=== PATIENT | male | born 1970 | race Caucasian/White ===

== ENCOUNTER 2018-09-23 11:09 | Inpatient (IN) | payer OTHER ==
[2018-09-23 15:39] VITALS: BMI 22.2
--- NOTE | 2018-09-23 16:09 | HP ---
COWS - Scale Resting Pulse: 1= [place] 81-100 Sweatin= Chills/Flushing Restless Observation: 3= Extraneous Movement Pupil Size: 1= Pupils >than Normal Bone or Joint Aches: 2= Severe Diffuse Aches Runny Nose/ Eye Tearin= Runny Nose/Eyes GI Upset > 30mins: 1= Stomach Cramp Tremor Observation: 1= Tremor Showell, Not Seen Yawning Observation: 0= None Anxiety or Irritability: 1=Feels Anxious/Irritable Goose Flesh Skin: 0=Smooth Skin COWS Score: 13 CIWA Score - Admission Criteria OASAS Guidelines: Admission for Medically Managed Detox: Requires at least one of the followin. CIWA greater than 12 2. Seizures within the past 24 hours 3. Delirium tremens within the past 24 hours 4. Hallucinations within the past 24 hours 5. Acute intervention needed for co occurring medical disorder 6. Acute intervention needed for co occurring psychiatric disorder 7. Severe withdrawal that cannot be handled at a lower level of care (continued vomiting, continued diarrhea, abnormal vital signs) requiring intravenous medication and/or fluids 8. Admission ROS S - HPI Chief Complaint: here for heroin detox 47 yo with h/ HCV pos, recently was at [facility] for a 3 day detox. SAys he restarted heroin use right after. Does not work, lives with aunt in [place], Dr. Ly- PCP. Pt not on meds. Pt states he picks at his skin when he is high on drugs [id number] bags IV/day, h/o OD 2011, was in a methadone program several years ago. d/w pt to reconsider MAT Deisy- rarely smokes denies other illicit drug use DUR- no controlled substances Allergies/Adverse Reactions: Allergies Allergy/AdvReac Type Severity Reaction Status Date / Time No Known Allergies Allergy Verified 07/03/14 14:56 - Ebola screening Have you traveled outside of the country in the last 21 days: No Have you had contact with anyone from an Ebola affected area: No Patient History - Patient Medical History Hx Anemia: No Hx Asthma: No Hx Chronic Obstructive Pulmonary Disease (COPD): No Hx Cardiac Disorders: No Hx Hypertension: No Hx Hypercholesterolemia: No HX Cerebrovascular Accident: No Hx Seizures: No Hx Diabetes: No Hx Gastrointestinal Disorders: No Hx Liver Disease: Yes (HEP C) Hx Genitourinary Disorders: No Hx Sexually Transmitted Disorders: No Hx Renal Disease (ESRD): No Hx Thyroid Disease: No Hx Human Immunodeficiency Virus (HIV): No (NEGATIVE HX) Hx Hepatitis C: Yes Hx Depression: Yes (currently not on treatment) Hx Suicide Attempt: No (DENIES) Hx Bipolar Disorder: No Hx Schizophrenia: No - Patient Surgical History Past Surgical History: Yes Hx Neurologic Surgery: No Hx Cataract Extraction: No Hx Cardiac Surgery: No Hx Lung Surgery: No Hx Breast Surgery: No Hx Breast Biopsy: No Hx Abdominal Surgery: No Hx Appendectomy: No Hx Cholecystectomy: Yes (2004) Hx Genitourinary Surgery: No Hx Section: No Hx Orthopedic Surgery: No Anesthesia Reaction: No - PPD History Date: 01/21/14 Results: 0 mm - Smoking Cessation Smoking history: Current every day smoker Have you smoked in the past 12 months: Yes Aproximately how many cigarettes per day: 20 Hx Chewing Tobacco Use: No Initiated information on smoking cessation: Yes 'Breaking Loose' booklet given: 09/23/18 - Substance & Tx. History Hx Alcohol Use: No Substance Use Type: Cocaine, Heroin Hx Substance Use Treatment: No - Substances abused Heroin Substance route: Injection Frequency: Daily Amount used: 1.5 bundles Age of first use: 28 Date of last use: 09/23/18 Family Disease History - Family Disease History Family Disease History: Other: Father (alcoholism) Admission Physical Exam BHS - Vital Signs Vital Signs: Vital Signs - 24 hr 09/23/18 09/23/18 15:27 15:52 Temperature 98.6 F 98.6 F Pulse Rate 78 78 Respiratory 18 18 Rate Blood Pressure 113/78 113/78 - Physical General Appearance: Yes: Other (multiple open and closed small areas of superficial ulcerations on arms) HEENTM: Yes: Within Normal Limits, EOMI, Hearing grossly Normal, Normal ENT Inspection, Normal Voice, LEONOR, Tm's normal Respiratory: Yes: Within Normal Limits, Chest Non-Tender, Lungs Clear Neck: Yes: Within Normal Limits, No masses,lesions,Nodules Cardiology: Yes: Within Normal Limits, Regular Rhythm, Regular Rate Abdominal: Yes: Within Normal Limits, Normal Bowel Sounds Back: Yes: Within Normal Limits, Normal Inspection Musculoskeletal: Yes: Within Normal Limits Extremities: Yes: Other (multiple scab friedman from scratching during drug use) Neurological: Yes: Within Normal Limits, reeler operator II-XII NML intact, Fully Oriented, Alert Integumentary: Yes: Track Friedman, Other (multiple areas of superficial scabs upper and lower extremities- no evidence of infection) Breathalyzer - Breathalyzer Breathalyzer: 0 Urine Drug Screen - Test Device Lot number: [id number] Expiration date: 06/06/20 - Control Is test valid?: Yes - Results Drug screen NEGATIVE: No Urine drug screen results: DEISY-Cocaine, FEN-Fentanyl, MOP-Opiates Inpatient Rehab Admission - Rehab Decision to Admit Inpatient rehab admission?: No
[2018-09-23] MEDS ORDERED: IBUPROFEN 400 MG TABLET (FP) PO PRN (16:15)
[2018-09-23] MEDS ORDERED: MAGNESIUM CITRATE 300 ML BOTTLE PO PRN (16:15)
[2018-09-23] MEDS ORDERED: NALOXONE HCL 0.4 MG/ML VIAL IVPUSH PRN (16:15)
[2018-09-23] MEDS ORDERED: MENTHOL/PHENOL 1 EACH UD MM PRN (16:15)
[2018-09-23] MEDS ORDERED: MAGNESIUM HYDROX 2400MG/30ML ORAL SUSPENSION 30 ML CUP PO PRN (16:15)
[2018-09-23] MEDS ORDERED: cloNIDine HCL 0.1 MG TABLET PO PRN (16:15)
[2018-09-23] MEDS ORDERED: METHOCARBAMOL 500 MG TABLET PO PRN (16:15)
[2018-09-23] MEDS ORDERED: ONDANSETRON *ODT* 4 MG TABLET SL PRN (16:15)
[2018-09-23] MEDS ORDERED: ACETAMINOPHEN 325 MG TABLET (FP) PO PRN ×2 (16:15)
[2018-09-23] MEDS ORDERED: MAG HYDROX/AL HYDROX/SIMETH 30 ML UNIT-DOSE CUP PO PRN (16:15)
[2018-09-23] MEDS ORDERED: BISMUTH SUBSALICYLATE 524 MG/30 ML UD PO PRN (16:15)
[2018-09-23] MEDS ORDERED: TRIMETHOBENZAMIDE HCL 200MG/2ML INJ IM PRN (16:17)
[2018-09-23] MEDS ORDERED: METHADONE HCL 10 MG TABLET (FOR DETOX USE ONLY) PO ONE ×2 (17:00→23:00)
[2018-09-23] MEDS: THIAMINE HCL 100 MG TABLET (FP) PO SCH (22:26)
[2018-09-23] MEDS: MELATONIN 5 MG TABLETS PO PRN (22:26)
[2018-09-24] MEDS ORDERED: METHADONE HCL 10 MG TABLET (FOR DETOX USE ONLY) PO ONE (10:00)
[2018-09-24] MEDS: NICOTINE 21 MG/24 HOURS TOPICAL PATCH TD SCH (10:33)
[2018-09-24] MEDS: PRENATAL VITAMINS W/ FOLIC ACID TABLET (FP) PO SCH (10:33)
[2018-09-24] MEDS: clonazePAM 0.5 MG TABLET PO PRN ×2 (10:35→16:59)
[2018-09-24] MEDS: DICYCLOMINE HCL 10 MG CAPSULE PO PRN (10:35)
[2018-09-24 10:49] LABS: ALBUMIN 3.4 g/dl (3.4-5.0); BILIRUBIN,TOTAL 0.5 mg/dL (0.2-1); BLOOD UREA NITROGEN 12.7 mg/dL (7-18); CALCIUM 9.3 mg/dL (8.5-10.1); CREATININE 0.9 mg/dL (0.55-1.3); POTASSIUM 4.3 mmol/L (3.5-5.1); TOT PROT 8.1 g/dl (6.4-8.2)
[2018-09-24 10:51] LABS: HEMATOCRIT 38.8 % (35.4-49); HEMOGLOBIN 13.1 GM/dL (11.7-16.9); MCH 30.1 pg (25.7-33.7); MCHC 33.8 g/dl (32.0-35.9); MEAN CELL VOLUME 89.3 fl (80-96); MEAN PLT VOLUME 7.8 fl (7.5-11.1); PLATELET COUNT 382 K/MM3 (134-434); RBC 4.35 M/mm3 (4.00-5.60); RDW 13.7 % (11.9-15.9); WHITE BLOOD COUNT 8.5 K/mm3 (4.0-10.0)
--- NOTE | 2018-09-24 12:12 | PN ---
BHS COWS - Scale Resting Pulse: 1= [place] 81-100 Sweatin= Chills/Flushing Restless Observation: 1= Difficult to Sit Still Pupil Size: 1= Pupils >than Normal Bone or Joint Aches: 2= Severe Diffuse Aches Runny Nose/ Eye Tearin= Runny Nose/Eyes GI Upset > 30mins: 2= Nausea/Diarrhea Tremor Observation of Outstretched Hands: 2= Slight Tremor Visible Yawning Observation: 1= 1-2x During Session Anxiety or Irritability: 2=Irritable/Anxious Goose Flesh Skin: 0=Smooth Skin COWS Score: 15 BHS Progress Note (SOAP) Subjective: alert,irritable,anxious,interrupted sleep,tremor,pain in the body and back Objective: 09/24/18 12:11 Vital Signs Temperature 98.2 F 09/24/18 09:46 Pulse Rate 92 H 09/24/18 09:46 Respiratory Rate 18 09/24/18 09:46 Blood Pressure 117/77 09/24/18 09:46 O2 Sat by Pulse Oximetry (%) Laboratory Last Values WBC 8.5 K/mm3 (4.0-10.0) 09/24/18 07:20 RBC 4.35 M/mm3 (4.00-5.60) 09/24/18 07:20 Hgb 13.1 GM/dL (11.7-16.9) 09/24/18 07:20 Hct 38.8 % (35.4-49) 09/24/18 07:20 MCV 89.3 fl (80-96) 09/24/18 07:20 MCH 30.1 pg (25.7-33.7) 09/24/18 07:20 MCHC 33.8 g/dl (32.0-35.9) 09/24/18 07:20 RDW 13.7 % (11.9-15.9) 09/24/18 07:20 Plt Count 382 K/MM3 (134-434) 09/24/18 07:20 MPV 7.8 fl (7.5-11.1) 09/24/18 07:20 Sodium 139 mmol/L (136-145) 09/24/18 07:20 Potassium 4.3 mmol/L (3.5-5.1) 09/24/18 07:20 Chloride 105 mmol/L (98-107) 09/24/18 07:20 Carbon Dioxide 27 mmol/L (21-32) 09/24/18 07:20 Anion Gap 6 MMOL/L (8-16) L 09/24/18 07:20 BUN 12.7 mg/dL (7-18) 09/24/18 07:20 Creatinine 0.9 mg/dL (0.55-1.3) 09/24/18 07:20 Est GFR (CKD-EPI)AfAm 118.30 09/24/18 07:20 Est GFR (CKD-EPI)NonAf 102.07 09/24/18 07:20 Random Glucose 82 mg/dL (74-106) 09/24/18 07:20 Calcium 9.3 mg/dL (8.5-10.1) 09/24/18 07:20 Total Bilirubin 0.5 mg/dL (0.2-1) 09/24/18 07:20 AST 32 U/L (15-37) 09/24/18 07:20 ALT 48 U/L (13-61) 09/24/18 07:20 Alkaline Phosphatase 84 U/L (45-117) 09/24/18 07:20 Total Protein 8.1 g/dl (6.4-8.2) 09/24/18 07:20 Albumin 3.4 g/dl (3.4-5.0) 09/24/18 07:20 RPR Titer Nonreactive (NONREACTIVE) 09/24/18 07:20 Assessment: 09/24/18 12:12 withdrawal symptom Plan: continue detox
[2018-09-24] MEDS: THIAMINE HCL 100 MG TABLET (FP) PO SCH (22:18)
[2018-09-24] MEDS: MELATONIN 5 MG TABLETS PO PRN (22:20)
[2018-09-24] MEDS: hydrOXYzine PAMOATE 25 MG CAPSULE (FP) PO PRN (22:21)
[2018-09-25] MEDS ORDERED: METHADONE HCL 10 MG TABLET (FOR DETOX USE ONLY) PO ONE (10:00)
[2018-09-25] MEDS: PRENATAL VITAMINS W/ FOLIC ACID TABLET (FP) PO SCH (10:26)
[2018-09-25] MEDS: NICOTINE 21 MG/24 HOURS TOPICAL PATCH TD SCH (10:26)
[2018-09-25] MEDS: clonazePAM 0.5 MG TABLET PO PRN ×3 (10:26→22:06)
[2018-09-25] MEDS: DICYCLOMINE HCL 10 MG CAPSULE PO PRN (10:27)
--- NOTE | 2018-09-25 16:27 | PN ---
BHS COWS - Scale Resting Pulse: 1= [place] 81-100 Sweatin= Chills/Flushing Restless Observation: 1= Difficult to Sit Still Pupil Size: 0= Normal to Room Light Bone or Joint Aches: 0= None Runny Nose/ Eye Tearin= None GI Upset > 30mins: 0= None Tremor Observation of Outstretched Hands: 0= None Yawning Observation: 1= 1-2x During Session Anxiety or Irritability: 2=Irritable/Anxious Goose Flesh Skin: 3=Piloerection COWS Score: 9 BHS Progress Note (SOAP) Subjective: Anxious, Interrupted Sleep, Sweating. Objective: PATIENT A & O X 3, OBSERVED AMBULATING ON UNIT UNASSISTED. IN NO ACUTE DISTRESS. 09/25/18 16:26 Vital Signs Temperature 98.9 F 09/25/18 13:16 Pulse Rate 80 09/25/18 13:16 Respiratory Rate 18 09/25/18 13:16 Blood Pressure 120/78 09/25/18 13:16 O2 Sat by Pulse Oximetry (%) Laboratory Tests 09/24/18 09/24/18 09/24/18 07:20 07:20 07:20 WBC 8.5 RBC 4.35 Hgb 13.1 Hct 38.8 MCV 89.3 MCH 30.1 MCHC 33.8 RDW 13.7 Plt Count 382 MPV 7.8 Sodium 139 Potassium 4.3 Chloride 105 Carbon Dioxide 27 Anion Gap 6 L BUN 12.7 Creatinine 0.9 Est GFR (CKD-EPI)AfAm 118.30 Est GFR (CKD-EPI)NonAf 102.07 Random Glucose 82 Calcium 9.3 Total Bilirubin 0.5 AST 32 ALT 48 Alkaline Phosphatase 84 Total Protein 8.1 Albumin 3.4 RPR Titer Nonreactive labs noted. Assessment: 09/25/18 16:26 WITHDRAWAL SYMPTOMS. Plan: CONTINUE DETOX.
[2018-09-25] MEDS: THIAMINE HCL 100 MG TABLET (FP) PO SCH (22:06)
[2018-09-26] MEDS ORDERED: METHADONE HCL 10 MG TABLET (FOR DETOX USE ONLY) PO ONE (10:00)
[2018-09-26] MEDS: PRENATAL VITAMINS W/ FOLIC ACID TABLET (FP) PO SCH (10:57)
[2018-09-26] MEDS: NICOTINE 21 MG/24 HOURS TOPICAL PATCH TD SCH (10:58)
[2018-09-26] MEDS: hydrOXYzine PAMOATE 25 MG CAPSULE (FP) PO PRN (11:00)
--- NOTE | 2018-09-26 16:27 | PN ---
BHS COWS - Scale Resting Pulse: 1= [place] 81-100 Sweatin= Chills/Flushing Restless Observation: 1= Difficult to Sit Still Pupil Size: 0= Normal to Room Light Bone or Joint Aches: 2= Severe Diffuse Aches Runny Nose/ Eye Tearin= None GI Upset > 30mins: 1= Stomach Cramp Tremor Observation of Outstretched Hands: 0= None Yawning Observation: 1= 1-2x During Session Anxiety or Irritability: 2=Irritable/Anxious Goose Flesh Skin: 0=Smooth Skin COWS Score: 9 BHS Progress Note (SOAP) Subjective: Anxious, Stomach Cramping. Objective: PATIENT A & O X 3, OBSERVED AMBULATING ON UNIT UNASSISTED. IN NO ACUTE DISTRESS. 09/26/18 16:25 Vital Signs Temperature 99.4 F 09/26/18 13:58 Pulse Rate 93 H 09/26/18 13:58 Respiratory Rate 09/26/18 13:58 Blood Pressure 125/94 09/26/18 13:58 O2 Sat by Pulse Oximetry (%) Laboratory Tests 09/24/18 09/24/18 09/24/18 07:20 07:20 07:20 WBC 8.5 RBC 4.35 Hgb 13.1 Hct 38.8 MCV 89.3 MCH 30.1 MCHC 33.8 RDW 13.7 Plt Count 382 MPV 7.8 Sodium 139 Potassium 4.3 Chloride 105 Carbon Dioxide 27 Anion Gap 6 L BUN 12.7 Creatinine 0.9 Est GFR (CKD-EPI)AfAm 118.30 Est GFR (CKD-EPI)NonAf 102.07 Random Glucose 82 Calcium 9.3 Total Bilirubin 0.5 AST 32 ALT 48 Alkaline Phosphatase 84 Total Protein 8.1 Albumin 3.4 RPR Titer Nonreactive LABS NOTED. Assessment: 09/26/18 16:26 WITHDRAWAL SYMPTOMS. Plan: CONTINUE DETOX. PRN DICYCLOMINE HCL PO FOR ABDOMINAL CRAMPING. PATIENT SCHEDULED FOR D/C TOMORROW.
[2018-09-26] MEDS: THIAMINE HCL 100 MG TABLET (FP) PO SCH (22:18)
[2018-09-26] MEDS: clonazePAM 0.5 MG TABLET PO PRN (22:20)
[2018-09-27] MEDS ORDERED: METHADONE HCL 5 MG TABLET (FOR DETOX USE ONLY) PO ONE (06:00)
[2018-09-27 09:38] VITALS: BP 146/79; PULSE 93; TEMP 98.4
[2018-09-27] MEDS: PRENATAL VITAMINS W/ FOLIC ACID TABLET (FP) PO SCH (10:42)
[2018-09-27] MEDS: NICOTINE 21 MG/24 HOURS TOPICAL PATCH TD SCH (10:42)
--- NOTE | 2018-09-27 13:44 | DS ---
[facility] Detox Discharge Summary Admission Date: 09/23/18 Discharge Date: 09/27/18 - History Present History: Opioid Dependence Additional Comments: PATIENT GOING TO [facility] ([facility]) FOR AFTERCARE. PATIENT WAS DISCHARGED FROM DETOX UNIT TO BE TAKEN OVER TO REHAB UNIT IN STABLE MEDICAL CONDITION. Pertinent Past History: Hep C, Depression, Nicotine Dependence. - Physical Exam Results Vital Signs: Vital Signs Temperature 98.4 F 09/27/18 09:37 Pulse Rate 93 H 09/27/18 09:37 Respiratory Rate 09/27/18 09:37 Blood Pressure 146/79 09/27/18 09:37 O2 Sat by Pulse Oximetry (%) Pertinent Admission Physical Exam Findings: WITHDRAWAL SYMPTOMS. Laboratory Tests 09/24/18 09/24/18 09/24/18 07:20 07:20 07:20 WBC 8.5 RBC 4.35 Hgb 13.1 Hct 38.8 MCV 89.3 MCH 30.1 MCHC 33.8 RDW 13.7 Plt Count 382 MPV 7.8 Sodium 139 Potassium 4.3 Chloride 105 Carbon Dioxide 27 Anion Gap 6 L BUN 12.7 Creatinine 0.9 Est GFR (CKD-EPI)AfAm 118.30 Est GFR (CKD-EPI)NonAf 102.07 Random Glucose 82 Calcium 9.3 Total Bilirubin 0.5 AST 32 ALT 48 Alkaline Phosphatase 84 Total Protein 8.1 Albumin 3.4 RPR Titer Nonreactive LABS NOTED. - Treatment Hospital Course: Detox Protocol Followed, Detoxed Safely, Responded well, Discharged Condition Good, Rehab Referral Accepted Patient has Accepted a Rehab Referral to: [facility] ([place], [place]). - Medication Discharge Medications: Ambulatory Orders NK [No Known Home Medication] 01/19/14 - Diagnosis (1) Hepatitis C Status: Chronic Qualifiers: Viral hepatitis chronicity: chronic Hepatic coma status: without hepatic coma Qualified Code(s): B18.2 - Chronic viral hepatitis C (2) Nicotine dependence Status: Acute Qualifiers: Nicotine product type: cigarettes Substance use status: uncomplicated Qualified Code(s): F17.210 - Nicotine dependence, cigarettes, uncomplicated (3) Opioid dependence Status: Acute Qualifiers: Substance use status: in withdrawal Qualified Code(s): F11.23 - Opioid dependence with withdrawal - AMA Did Patient Leave Against Medical Advice: No
== END 2018-09-27 12:49 | disposition other institution (70) | DRG 773 ==
LOC: YASAS 11:09 → Y3N 16:41
PROVIDERS: ADMIT Surgery; ATTEND Surgery
PROC: HZ2ZZZZ Detoxification Services for Substance Abuse Treatment (ICD-10-PCS; principal; 2018-09-23)
DX: F11.23 Opioid dependence with withdrawal (principal); F14.20 Cocaine dependence, uncomplicated; F17.210 Nicotine dependence, cigarettes, uncomplicated; F32.9 Major depressive disorder, single episode, unspecified; B18.2 Chronic viral hepatitis C
CPT/HCPCS: 36415; 80053; 85027; 86593

== ENCOUNTER 2018-09-27 12:54 | Inpatient (IN) | payer OTHER ==
[2018-09-27] MEDS ORDERED: MAGNESIUM CITRATE 300 ML BOTTLE PO PRN (13:50)
[2018-09-27] MEDS ORDERED: ACETAMINOPHEN 325 MG TABLET (FP) PO PRN (13:50)
[2018-09-27] MEDS ORDERED: LOPERAMIDE HCL 2 MG CAPSULE PO PRN (13:50)
[2018-09-27] MEDS ORDERED: IBUPROFEN 400 MG TABLET (FP) PO PRN (13:50)
[2018-09-27] MEDS ORDERED: guaiFENesin 200 MG/10 ML 10 ML UNIT-DOSE CUPS PO PRN (13:50)
[2018-09-27] MEDS ORDERED: MAGNESIUM HYDROX 2400MG/30ML ORAL SUSPENSION 30 ML CUP PO PRN (13:50)
[2018-09-27] MEDS ORDERED: MENTHOL/PHENOL 1 EACH UD MM PRN (13:50)
[2018-09-27] MEDS ORDERED: P-EPHED 60MG/TRIPROLIDI 2.5MG TABLET PO PRN (13:50)
[2018-09-27] MEDS ORDERED: MAG HYDROX/AL HYDROX/SIMETH 30 ML UNIT-DOSE CUP PO PRN (13:50)
--- NOTE | 2018-09-27 13:52 | HP ---
THANH GUEVARA Rehab Assess/Revision - Admission History Admitted to Rehab from: [facility] Date of Admission to Rehab: 09/27/2018 - Vital signs Vital Signs: Vital Signs Period Temp Pulse Resp BP Sys/Salcedo Pulse Ox Last 24 Hr 98.6 F 91 18 111/67 - Findings Detox History & Physical reviewed: Yes Concur with findings: Yes Comments/Additional Findings: PATIENT'S MEDICAL / MEDICATION HISTORY REVIEWED PRIOR TO DISCHARGE FROM DETOX UNIT. PATIENT WAS DISCHARGED FROM DETOX UNIT TO BE TAKEN OVER TO REHAB UNIT IN STABLE MEDICAL CONDITION. Inpatient Rehab Admission - Rehab Decision to Admit Inpatient rehab admission?: Yes - Initial Determination Are CD services needed?: Yes Free of communicable disease: Yes Not in need of hospitalization: Yes - Rehab Admission Criteria Previous failed treatment: Yes Poor recovery environment: No Comorbidities: Yes Lacks judgement: No Patient is meeting Inpatient Rehab admission criteria:: Yes
[2018-09-27] MEDS: THIAMINE HCL 100 MG TABLET (FP) PO SCH (21:55)
[2018-09-27] MEDS: MELATONIN 5 MG TABLETS PO PRN (21:56)
[2018-09-28] MEDS: NICOTINE 21 MG/24 HOURS TOPICAL PATCH TD SCH (10:26)
[2018-09-28] MEDS: PRENATAL VITAMINS W/ FOLIC ACID TABLET (FP) PO SCH (10:26)
[2018-09-28] MEDS: THIAMINE HCL 100 MG TABLET (FP) PO SCH (21:40)
[2018-09-29] MEDS: NICOTINE 21 MG/24 HOURS TOPICAL PATCH TD SCH (10:31)
[2018-09-29] MEDS: PRENATAL VITAMINS W/ FOLIC ACID TABLET (FP) PO SCH (10:31)
[2018-09-29] MEDS: MELATONIN 5 MG TABLETS PO PRN (21:39)
[2018-09-29] MEDS: THIAMINE HCL 100 MG TABLET (FP) PO SCH (21:39)
[2018-09-30] MEDS: PRENATAL VITAMINS W/ FOLIC ACID TABLET (FP) PO SCH (10:43)
[2018-09-30] MEDS: NICOTINE 21 MG/24 HOURS TOPICAL PATCH TD SCH (10:44)
[2018-09-30] MEDS: THIAMINE HCL 100 MG TABLET (FP) PO SCH (21:35)
[2018-09-30] MEDS: MELATONIN 5 MG TABLETS PO PRN (21:35)
[2018-10-01] MEDS: NICOTINE 21 MG/24 HOURS TOPICAL PATCH TD SCH (10:26)
[2018-10-01] MEDS: PRENATAL VITAMINS W/ FOLIC ACID TABLET (FP) PO SCH (10:26)
[2018-10-01] MEDS: MELATONIN 5 MG TABLETS PO PRN (21:36)
[2018-10-01] MEDS: THIAMINE HCL 100 MG TABLET (FP) PO SCH (21:36)
[2018-10-02] MEDS: PRENATAL VITAMINS W/ FOLIC ACID TABLET (FP) PO SCH (10:00)
[2018-10-02] MEDS: NICOTINE 21 MG/24 HOURS TOPICAL PATCH TD SCH (10:00)
--- NOTE | 2018-10-02 12:43 | CONSULT ---
[facility] Psychiatric Consult - Data Date of interview: 10/02/18 Admission source: 3N Identifying data: Mr Hill is a 47 years old male, father of a 24 years old daughter, unemployed with no source of income, domiciled renting a room from a relative seeking rehab treatment for opioid and cocaine Substance Abuse History: Reports history of heroin and cocaine use. Referto addiction counselor's summary for further information Medical History: Significant for hepatitis C, GERD and history of cholecystectomy in 2004. Smokes cigarettes 1 ppd Psychiatric History: Reports that his sole psychiatric treatment occured in 1994 when, after losing both his father and his sister, he was diagnosed with MDD and started on Prozac. Claims that he stopped taking the medication after a year. Denies previous psychiatric hospitalization or suicidal attempt. At present, denies experiencing depressive symptoms, S/H ideations. However, reports sleeping poorly Physical/Sexual Abuse/Trauma History: Denies history of emotional, physical or sexual abuse a well as DV relationship. No service Additional Comment: Reports history of 6 previous arrset including 2 felony conviction on charges of sale Mental Status Exam - Mental Status Exam Alert and Oriented to: Time, Place, Person Cognitive Function: Fair Patient Appearance: Well Groomed Mood: Hopeful, Euthymic Patient Behavior: Cooperative Speech Pattern: Clear Voice Loudness: Normal Thought Process: Intact Thought Disorder: Not Present Hallucinations: Denies Suicidal Ideation: Denies Homicidal Ideation: Denies Insight/Judgement: Poor Sleep: Poorly Appetite: Fair Muscle strength/Tone: Normal Gait/Station: Normal Psychiatric Findings - Problem List (Ruth 1, 2,3) (1) Depressive disorder Current Visit: Yes Status: Chronic (2) MDD (major depressive disorder) Current Visit: Yes Status: Acute (3) Substance-induced sleep disorder Current Visit: Yes Status: Acute (4) Opioid dependence Current Visit: No Status: Acute Qualifiers: Substance use status: in withdrawal Qualified Code(s): F11.23 - Opioid dependence with withdrawal (5) Cocaine dependence Current Visit: No Status: Acute (6) GERD (gastroesophageal reflux disease) Current Visit: No Status: Chronic (7) Hepatitis C Current Visit: No Status: Chronic Qualifiers: Viral hepatitis chronicity: chronic Hepatic coma status: without hepatic coma Qualified Code(s): B18.2 - Chronic viral hepatitis C - Initial Treatment Plan Initial Treatment Plan: 1) Start Belsomra 10 mg po HS prn for insomnia. 2) Continue inpatient rehabilitation
[2018-10-02] MEDS: THIAMINE HCL 100 MG TABLET (FP) PO SCH (21:36)
[2018-10-02] MEDS: SUVOREXANT 10 MG TABLET PO PRN (21:37)
[2018-10-03] MEDS: NICOTINE 21 MG/24 HOURS TOPICAL PATCH TD SCH (10:08)
[2018-10-03] MEDS: PRENATAL VITAMINS W/ FOLIC ACID TABLET (FP) PO SCH (10:08)
--- NOTE | 2018-10-03 12:25 | PN ---
BHS COWS - Scale Resting Pulse: 1= [place] 81-100 Sweatin= No chills or Flushing Restless Observation: 0= Sits Still Pupil Size: 0= Normal to Room Light Bone or Joint Aches: 4=Acute Joint/Muscle Pain Runny Nose/ Eye Tearin= None GI Upset > 30mins: 0= None Tremor Observation of Outstretched Hands: 0= None Yawning Observation: 0= None Anxiety or Irritability: 1=Feels Anxious/Irritable Goose Flesh Skin: 0=Smooth Skin COWS Score: 6 BHS Progress Note (SOAP) Subjective: PT REPORTS HE WAS ON SUBOXONE WITH DR SOULEYMANE COLUNGA UP TILL AUGUST 2018. AND THEN RELAPSED. PT WANTS TO RESTART AND GO BACK TO HIS DOCTOR AT [facility],[address] [place], [place] [address]PHONE:[phone]). PT REPORTS HE WAS ON SUBOXONE 12MG SL BID BEFOR RELAPSE. PT'S COUNSELLOR, MS GLORIA BROWN CALLED DR'S OFFICE AND SCHEDULED AFTERCARE FOR PATIENT TO GO BACK AFTER REHAB. Objective: 10/03/18 12:25 Vital Signs 10/03/18 06:33 Temperature 98.0 F Pulse Rate 85 Respiratory 16 Rate Blood Pressure 124/81 Assessment: 10/03/18 12:25 PROTRACTED W/S CRAVINGS Plan: D/W PT TODAY UDS THEN START SUBOXONE 4 MG/1 MG SL DAILY THEN PROGRESS 8 MG/2 MG SL BID
[2018-10-03] MEDS ORDERED: BUPRENORPHINE/NALOXONE 2 MG/0.5 MG FILM PACKET SL ONE (16:30)
[2018-10-03] MEDS: THIAMINE HCL 100 MG TABLET (FP) PO SCH (21:48)
[2018-10-03] MEDS: SUVOREXANT 10 MG TABLET PO PRN (21:49)
[2018-10-04] MEDS ORDERED: BUPRENORPHINE/NALOXONE 2 MG/0.5 MG FILM PACKET SL SCH (10:00)
[2018-10-04] MEDS: NICOTINE 21 MG/24 HOURS TOPICAL PATCH TD SCH (10:06)
[2018-10-04] MEDS: PRENATAL VITAMINS W/ FOLIC ACID TABLET (FP) PO SCH (10:06)
--- NOTE | 2018-10-04 11:23 | PN ---
BHS Progress Note Note: PT REQUESTING FOR CHANGE IN DOSING TIME FOR SUBOXONE. SUBOXONE 4MG/1 MG SL BID @0600 & 1800 DAILY Vital Signs 10/04/18 10/04/18 03:30 06:46 Temperature 97.9 F Pulse Rate 82 Respiratory 18 17 Rate Blood Pressure 123/75 REPORTS NO ACUTE DISTRESS.
[2018-10-04] MEDS: BUPRENORPHINE/NALOXONE 2 MG/0.5 MG FILM PACKET SL SCH (17:50)
[2018-10-04] MEDS: THIAMINE HCL 100 MG TABLET (FP) PO SCH (21:42)
[2018-10-04] MEDS: SUVOREXANT 10 MG TABLET PO PRN (21:43)
[2018-10-05] MEDS: BUPRENORPHINE/NALOXONE 2 MG/0.5 MG FILM PACKET SL SCH ×2 (06:05→18:07)
[2018-10-05] MEDS: PRENATAL VITAMINS W/ FOLIC ACID TABLET (FP) PO SCH (10:19)
[2018-10-05] MEDS: NICOTINE 21 MG/24 HOURS TOPICAL PATCH TD SCH (10:19)
--- NOTE | 2018-10-05 12:20 | PN ---
Fátima Progress Note Note: Psychiatry Attending's note : Called for renewal of suvorexant. Chart reviewed. Dr Smith's note of 10/02/18 : appreciated. Medication is confirmed. Informed consent : already done. No report of adverse effects. Good response to the medication. Belsomra 10 mg po hs prn. Renewed. .
[2018-10-05] MEDS ORDERED: SUVOREXANT 10 MG TABLET PO PRN ×2 (12:26→22:00)
[2018-10-05] MEDS: THIAMINE HCL 100 MG TABLET (FP) PO SCH (21:45)
[2018-10-05] MEDS: SUVOREXANT 10 MG TABLET PO PRN (21:46)
[2018-10-05] MEDS: NICOTINE POLACRILEX 2 MG GUM BUC PRN (21:46)
[2018-10-06] MEDS: BUPRENORPHINE/NALOXONE 2 MG/0.5 MG FILM PACKET SL SCH ×2 (06:21→17:38)
[2018-10-06] MEDS: PRENATAL VITAMINS W/ FOLIC ACID TABLET (FP) PO SCH (10:36)
[2018-10-06] MEDS: NICOTINE 21 MG/24 HOURS TOPICAL PATCH TD SCH (10:37)
[2018-10-06] MEDS: NICOTINE POLACRILEX 2 MG GUM BUC PRN (10:41)
[2018-10-06] MEDS: THIAMINE HCL 100 MG TABLET (FP) PO SCH (21:35)
[2018-10-07] MEDS: BUPRENORPHINE/NALOXONE 2 MG/0.5 MG FILM PACKET SL SCH (06:27)
[2018-10-07 06:59] VITALS: BP 138/81; PULSE 93; TEMP 97.8
[2018-10-07] MEDS: NICOTINE POLACRILEX 2 MG GUM BUC PRN (10:46)
[2018-10-07] MEDS: NICOTINE 21 MG/24 HOURS TOPICAL PATCH TD SCH (10:46)
[2018-10-07] MEDS: PRENATAL VITAMINS W/ FOLIC ACID TABLET (FP) PO SCH (10:46)
--- NOTE | 2018-10-07 12:30 | PN ---
BHS Progress Note (SOAP) Subjective: PT COMPLETED REHAB AND DISCHARGED TODAY. PT HAS BEEN REFERRED BACK TO HIS PCP/ SUBOXONE PROVIDER FOR TO CONTINUE CARE AND THE [facility] CD PROGRAM FOR AFTERCARE. ALERT O X 3. DENIES S/H/I. COURTESY RX FOR SUBOXONE 4MG/1MG SL BID #14 ELECTRONICALLY SENT TO PT'S PHARMACY. Objective: 10/07/18 12:30 Vital Signs 10/07/18 06:58 Temperature 97.8 F Pulse Rate 93 H Respiratory 18 Rate Blood Pressure 138/81 Home Medications Medication Instructions Recorded Buprenorphine HCl/Naloxone HCl 1 each SL BID #14 film MDD 2 10/07/18 [Suboxone 4 mg-1 mg Sl Film] Assessment: 10/07/18 13:20 NAD MEDICALLY STABLE Plan: FOLLOW UP WITH PCP WITHIN 1 WEEK FOLLOW UP WITH CD AFTERCARE RECOMMENDED.
== END 2018-10-07 11:10 | disposition home or self-care (01) | DRG 772 ==
LOC: YASAS 12:54 → Y5N 12:55
PROVIDERS: ADMIT Neuromusculoskeletal Medicine & OMM; ATTEND Neuromusculoskeletal Medicine & OMM
PROC: HZ42ZZZ Group Counseling for Substance Abuse Treatment, Cognitive-Behavioral (ICD-10-PCS; principal; 2018-09-27)
DX: F11.20 Opioid dependence, uncomplicated (principal); F14.20 Cocaine dependence, uncomplicated; F17.210 Nicotine dependence, cigarettes, uncomplicated; F32.9 Major depressive disorder, single episode, unspecified; F19.282 Other psychoactive substance dependence with psychoactive substance-induced sleep disorder; K21.9 Gastro-esophageal reflux disease without esophagitis; B18.2 Chronic viral hepatitis C

== ENCOUNTER 2020-04-08 10:10 | Inpatient (IN) | payer OTHER ==
[2020-04-08 10:55] VITALS: BMI 23.6
[2020-04-08] MEDS ORDERED: MAGNESIUM HYDROX 2400MG/30ML ORAL SUSPENSION 30 ML CUP PO PRN (11:25)
[2020-04-08] MEDS ORDERED: METHADONE HCL 10 MG TABLET (FOR DETOX USE ONLY) PO ONE (11:25)
[2020-04-08] MEDS ORDERED: MAG HYDROX/AL HYDROX/SIMETH 30 ML UNIT-DOSE CUP PO PRN (11:25)
[2020-04-08] MEDS ORDERED: MENTHOL/PHENOL 1 EACH UD MM PRN (11:25)
[2020-04-08] MEDS ORDERED: NICOTINE POLACRILEX 2 MG GUM BUC PRN (11:25)
[2020-04-08] MEDS ORDERED: cloNIDine HCL 0.1 MG TABLET PO PRN (11:25)
[2020-04-08] MEDS ORDERED: ACETAMINOPHEN 325 MG TABLET (FP) PO PRN ×2 (11:25)
[2020-04-08] MEDS ORDERED: BISMUTH SUBSALICYLATE 262 MG/15 ML BTL PO PRN (11:25)
[2020-04-08] MEDS ORDERED: MAGNESIUM CITRATE 300 ML BOTTLE PO PRN (11:25)
[2020-04-08] MEDS: ONDANSETRON *ODT* 4 MG TABLET SL PRN (12:44)
[2020-04-08] MEDS: PRENATAL VITAMINS W/ FOLIC ACID TABLET (FP) PO SCH (12:44)
[2020-04-08] MEDS: hydrOXYzine PAMOATE 25 MG CAPSULE (FP) PO SCH ×3 (14:06→22:21)
[2020-04-08 17:07] LABS: HEMATOCRIT 37.5 % (35.4-49); HEMOGLOBIN 12.6 GM/dL (11.7-16.9); MCH 31.7 pg (25.7-33.7); MCHC 33.6 g/dl (32.0-35.9); MEAN CELL VOLUME 94.4 fl (80-96); MEAN PLT VOLUME 8.3 fl (7.5-11.1); PLATELET COUNT 349 K/MM3 (134-434); RBC 3.97 M/mm3 (4.00-5.60); RDW 13.7 % (11.9-15.9); WHITE BLOOD COUNT 6.2 K/mm3 (4.0-10.0)
[2020-04-08 17:10] LABS: POTASSIUM 4.4 mmol/L (3.5-5.1)
[2020-04-08 17:12] LABS: CALCIUM 9.6 mg/dL (8.5-10.1)
[2020-04-08 17:13] LABS: ALBUMIN 3.7 g/dl (3.4-5.0); BLOOD UREA NITROGEN 21.1 mg/dL (7-18)
[2020-04-08 17:16] LABS: CREATININE 0.9 mg/dL (0.55-1.3)
[2020-04-08 17:18] LABS: BILIRUBIN,TOTAL 0.6 mg/dL (0.2-1); TOT PROT 8.4 g/dl (6.4-8.2)
[2020-04-08] MEDS ORDERED: MELATONIN 5 MG TABLETS PO SCH (22:00)
[2020-04-08] MEDS ORDERED: SUVOREXANT 10 MG TABLET PO PRN (22:00)
[2020-04-08] MEDS: THIAMINE HCL 100 MG TABLET (FP) PO SCH (22:21)
[2020-04-09] MEDS: hydrOXYzine PAMOATE 25 MG CAPSULE (FP) PO SCH ×5 (07:22→23:32)
[2020-04-09] MEDS ORDERED: METHADONE HCL 10 MG TABLET (FOR DETOX USE ONLY) ONE (08:50)
[2020-04-09] MEDS ORDERED: METHADONE HCL 5 MG TABLET (FOR DETOX USE ONLY) ONE (08:50)
[2020-04-09] MEDS: PRENATAL VITAMINS W/ FOLIC ACID TABLET (FP) PO SCH (09:17)
[2020-04-09] MEDS ORDERED: METHADONE (DETOX) 20 MG, METHADONE (DETOX) 5 MG PO ONE (10:00)
[2020-04-09] MEDS: THIAMINE HCL 100 MG TABLET (FP) PO SCH (23:33)
[2020-04-10] MEDS: hydrOXYzine PAMOATE 25 MG CAPSULE (FP) PO SCH ×5 (06:36→22:16)
[2020-04-10] MEDS: PRENATAL VITAMINS W/ FOLIC ACID TABLET (FP) PO SCH (09:22)
[2020-04-10] MEDS ORDERED: METHADONE HCL 10 MG TABLET (FOR DETOX USE ONLY) PO ONE (10:00)
[2020-04-10] MEDS: ONDANSETRON *ODT* 4 MG TABLET SL PRN (17:16)
[2020-04-10] MEDS: THIAMINE HCL 100 MG TABLET (FP) PO SCH (22:16)
[2020-04-10] MEDS: IBUPROFEN 400 MG TABLET (FP) PO PRN (22:18)
[2020-04-10] MEDS: METHOCARBAMOL 500 MG TABLET PO PRN (22:18)
[2020-04-11] MEDS: hydrOXYzine PAMOATE 25 MG CAPSULE (FP) PO SCH ×5 (06:33→22:26)
[2020-04-11] MEDS ORDERED: METHADONE HCL 5 MG TABLET (FOR DETOX USE ONLY) ONE (09:42)
[2020-04-11] MEDS ORDERED: METHADONE HCL 10 MG TABLET (FOR DETOX USE ONLY) ONE (09:42)
[2020-04-11] MEDS: METHOCARBAMOL 500 MG TABLET PO PRN ×2 (09:58→17:10)
[2020-04-11] MEDS: PRENATAL VITAMINS W/ FOLIC ACID TABLET (FP) PO SCH (09:58)
[2020-04-11] MEDS ORDERED: METHADONE (DETOX) 10 MG, METHADONE (DETOX) 5 MG PO ONE (10:00)
[2020-04-11] MEDS: NICOTINE 21 MG/24 HOURS TOPICAL PATCH TD SCH (17:56)
[2020-04-11] MEDS: THIAMINE HCL 100 MG TABLET (FP) PO SCH (22:26)
[2020-04-12] MEDS: hydrOXYzine PAMOATE 25 MG CAPSULE (FP) PO SCH ×2 (07:02→09:40)
[2020-04-12] MEDS: PRENATAL VITAMINS W/ FOLIC ACID TABLET (FP) PO SCH (09:40)
[2020-04-12] MEDS: NICOTINE 21 MG/24 HOURS TOPICAL PATCH TD SCH (09:40)
[2020-04-12] MEDS: METHOCARBAMOL 500 MG TABLET PO PRN (09:43)
[2020-04-12] MEDS: IBUPROFEN 400 MG TABLET (FP) PO PRN (09:43)
[2020-04-12] MEDS ORDERED: METHADONE HCL 10 MG TABLET (FOR DETOX USE ONLY) PO ONE (10:00)
[2020-04-12] MEDS ORDERED: hydrOXYzine PAMOATE 25 MG CAPSULE (FP) PO PRN (11:25)
[2020-04-12] MEDS: THIAMINE HCL 100 MG TABLET (FP) PO SCH (22:02)
[2020-04-13] MEDS ORDERED: METHADONE HCL 5 MG TABLET (FOR DETOX USE ONLY) PO ONE (06:00)
[2020-04-13 10:05] VITALS: BP 113/73; PULSE 87; TEMP 98.4
== END 2020-04-13 09:17 | disposition home or self-care (01) | DRG 773 ==
LOC: YASAS 10:10 → Y3N 11:13
PROVIDERS: ADMIT Allergy & Immunology; ATTEND Allergy & Immunology
PROC: HZ2ZZZZ Detoxification Services for Substance Abuse Treatment (ICD-10-PCS; principal; 2020-04-08)
DX: F11.23 Opioid dependence with withdrawal (principal); F10.230 Alcohol dependence with withdrawal, uncomplicated; F14.20 Cocaine dependence, uncomplicated; F19.282 Other psychoactive substance dependence with psychoactive substance-induced sleep disorder; F17.210 Nicotine dependence, cigarettes, uncomplicated; F32.9 Major depressive disorder, single episode, unspecified; K21.9 Gastro-esophageal reflux disease without esophagitis; B18.2 Chronic viral hepatitis C; R79.89 Other specified abnormal findings of blood chemistry; Z90.49 Acquired absence of other specified parts of digestive tract
CPT/HCPCS: 36415; 80053; 85027; 86780; 93005; 93010; C9803; Q0162; U0003

== ENCOUNTER 2021-06-03 14:07 | Inpatient (IN) | payer BC, OTHER ==
[2021-06-03] MEDS ORDERED: NICOTINE 10 MG CARTRIDGE (INHALER) IH PRN (16:14)
[2021-06-03] MEDS ORDERED: IBUPROFEN 400 MG TABLET (FP) PO PRN (16:14)
[2021-06-03] MEDS ORDERED: MENTHOL/PHENOL 1 EACH UD MM PRN (16:14)
[2021-06-03] MEDS ORDERED: diazePAM 5 MG TABLET PO PRN ×2 (16:14→18:16)
[2021-06-03] MEDS ORDERED: METHOCARBAMOL 500 MG TABLET PO PRN (16:14)
[2021-06-03] MEDS ORDERED: MAGNESIUM HYDROX 2400MG/30ML ORAL SUSPENSION 30 ML CUP PO PRN (16:14)
[2021-06-03] MEDS ORDERED: MAG HYDROX/AL HYDROX/SIMETH 30 ML UNIT-DOSE CUP PO PRN (16:14)
[2021-06-03] MEDS ORDERED: cloNIDine HCL 0.1 MG TABLET PO ONE (16:14)
[2021-06-03] MEDS ORDERED: LOPERAMIDE HCL 2 MG CAPSULE PO PRN (16:14)
[2021-06-03] MEDS ORDERED: ACETAMINOPHEN 325 MG TABLET (FP) PO PRN ×2 (16:14)
[2021-06-03] MEDS ORDERED: BUPRENORPHINE HCL 150 MCG, BUPRENORPHINE HCL 75 MCG BC ONE (16:14)
[2021-06-03] MEDS ORDERED: MAGNESIUM CITRATE 300 ML BOTTLE PO PRN (16:14)
[2021-06-03 16:59] VITALS: BMI 21.2
[2021-06-03] MEDS ORDERED: BUPRENORPHINE HCL 75 MCG FILM BC ONE (17:31)
[2021-06-03] MEDS ORDERED: BUPRENORPHINE HCL 150 MCG FILM BC ONE (17:32)
[2021-06-03] MEDS ORDERED: diazePAM 5 MG TABLET PO ONE (18:33)
[2021-06-03] MEDS: NICOTINE 21 MG/24 HOURS TOPICAL PATCH TD SCH (18:58)
[2021-06-03] MEDS: hydrOXYzine PAMOATE 25 MG CAPSULE (FP) PO SCH ×2 (18:59→22:17)
[2021-06-03] MEDS: diazePAM 5 MG TABLET PO SCH (22:16)
[2021-06-03] MEDS: BACITRACIN 0.9 GM PACKET TP SCH (22:16)
[2021-06-03] MEDS: THIAMINE HCL 100 MG TABLET (FP) PO SCH (22:17)
[2021-06-03] MEDS: MELATONIN 5 MG TABLETS PO SCH (22:17)
[2021-06-04] MEDS ORDERED: BUPRENORPHINE HCL 75 MCG FILM BC ONE ×2 (04:34→19:17)
[2021-06-04] MEDS ORDERED: BUPRENORPHINE HCL 150 MCG FILM BC ONE ×2 (04:34→19:16)
[2021-06-04] MEDS: hydrOXYzine PAMOATE 25 MG CAPSULE (FP) PO SCH ×5 (05:19→23:14)
[2021-06-04] MEDS: diazePAM 5 MG TABLET PO SCH ×4 (05:19→23:15)
[2021-06-04] MEDS: BUPRENORPHINE HCL 150 MCG, BUPRENORPHINE HCL 75 MCG BC SCH ×2 (05:20→19:19)
[2021-06-04] MEDS: PRENATAL VITAMINS W/ FOLIC ACID TABLET (FP) PO SCH (10:26)
[2021-06-04] MEDS: NICOTINE 21 MG/24 HOURS TOPICAL PATCH TD SCH (10:26)
[2021-06-04] MEDS: BACITRACIN 0.9 GM PACKET TP SCH ×2 (10:27→23:14)
[2021-06-04] MEDS: cloNIDine HCL 0.1 MG TABLET PO PRN (17:31)
[2021-06-04] MEDS: ONDANSETRON *ODT* 4 MG TABLET SL PRN (17:31)
[2021-06-04] MEDS: MELATONIN 5 MG TABLETS PO SCH (23:14)
[2021-06-04] MEDS: THIAMINE HCL 100 MG TABLET (FP) PO SCH (23:15)
[2021-06-05] MEDS: hydrOXYzine PAMOATE 25 MG CAPSULE (FP) PO SCH ×5 (06:02→22:43)
[2021-06-05] MEDS: diazePAM 5 MG TABLET PO SCH ×3 (06:02→22:43)
[2021-06-05] MEDS: BUPRENORPHINE HCL 450 MCG FILM BC SCH ×2 (06:02→17:24)
[2021-06-05] MEDS: ONDANSETRON *ODT* 4 MG TABLET SL PRN ×2 (06:03→15:05)
[2021-06-05] MEDS: NICOTINE 21 MG/24 HOURS TOPICAL PATCH TD SCH (10:46)
[2021-06-05] MEDS: BACITRACIN 0.9 GM PACKET TP SCH ×2 (10:46→22:44)
[2021-06-05] MEDS: PRENATAL VITAMINS W/ FOLIC ACID TABLET (FP) PO SCH (10:46)
[2021-06-05 13:07] LABS: SARS-CoV-2 NAA Not Detected (Not Detected)
[2021-06-05] MEDS: cloNIDine HCL 0.1 MG TABLET PO PRN ×2 (17:24→22:42)
[2021-06-05] MEDS: BISMUTH SUBSALICYLATE 524 MG/30 ML PO PRN (17:28)
[2021-06-05] MEDS: MELATONIN 5 MG TABLETS PO SCH (22:42)
[2021-06-05] MEDS: THIAMINE HCL 100 MG TABLET (FP) PO SCH (22:43)
[2021-06-06] MEDS: hydrOXYzine PAMOATE 25 MG CAPSULE (FP) PO SCH ×5 (05:52→22:17)
[2021-06-06] MEDS: BUPRENORPHINE/NALOXONE 4 MG/1 MG FILM PACKET SL SCH ×2 (05:52→17:56)
[2021-06-06] MEDS: diazePAM 5 MG TABLET PO SCH ×2 (05:52→17:58)
[2021-06-06] MEDS: PRENATAL VITAMINS W/ FOLIC ACID TABLET (FP) PO SCH (10:57)
[2021-06-06] MEDS: BACITRACIN 0.9 GM PACKET TP SCH ×2 (10:57→22:17)
[2021-06-06] MEDS: NICOTINE 21 MG/24 HOURS TOPICAL PATCH TD SCH ×2 (10:57→11:00)
[2021-06-06] MEDS: cloNIDine HCL 0.1 MG TABLET PO PRN (10:59)
[2021-06-06] MEDS: ONDANSETRON *ODT* 4 MG TABLET SL PRN (17:57)
[2021-06-06] MEDS: MELATONIN 5 MG TABLETS PO SCH (22:17)
[2021-06-06] MEDS: THIAMINE HCL 100 MG TABLET (FP) PO SCH (22:17)
[2021-06-06] MEDS: BISMUTH SUBSALICYLATE 524 MG/30 ML PO PRN (22:19)
[2021-06-07] MEDS ORDERED: BUPRENORPHINE/NALOXONE 8 MG/2 MG FILM PACKET SL ONE (06:00)
[2021-06-07] MEDS ORDERED: diazePAM 5 MG TABLET PO ONE (06:00)
[2021-06-07] MEDS: hydrOXYzine PAMOATE 25 MG CAPSULE (FP) PO SCH (06:13)
[2021-06-07 09:15] VITALS: BP 111/75; PULSE 84; TEMP 97.1
== END 2021-06-07 10:12 | disposition home or self-care (01) | DRG 897 ==
LOC: YASAS 14:07 → Y3N 17:02
PROVIDERS: ADMIT Allergy & Immunology; ATTEND Allergy & Immunology
PROC: HZ2ZZZZ Detoxification Services for Substance Abuse Treatment (ICD-10-PCS; principal; 2021-06-03)
DX: F11.23 Opioid dependence with withdrawal (principal); F14.20 Cocaine dependence, uncomplicated; F10.230 Alcohol dependence with withdrawal, uncomplicated; F17.210 Nicotine dependence, cigarettes, uncomplicated; K21.9 Gastro-esophageal reflux disease without esophagitis; B18.2 Chronic viral hepatitis C; H55.00 Unspecified nystagmus; L98.8 Other specified disorders of the skin and subcutaneous tissue
CPT/HCPCS: 93005; 93010; C9803; J0735; Q0162; U0003; U0005